=== PATIENT | male | born 1990 | race Caucasian/White ===

== ENCOUNTER 2016-05-03 17:30 | Emergency (ER) | payer OTHER ==
[2016-05-03 17:46] VITALS: BP 141/60; PULSE 87; RESP 18; TEMP 99.4
--- NOTE | 2016-05-03 18:20 | ED ---
General Adult HPI - General Chief complaint: ENT Stated complaint: RT EAR SWELLING Time Seen by Provider: 05/03/16 18:11 Source: patient, RN notes reviewed Mode of arrival: ambulatory Limitations: no limitations - History of Present Illness Initial comments: This is a 25-year-old male presents with an abscess to the right ear lobe. Patient states this has been present for about one month but has not been this large. Patient states this has happened to him once here for the last 3 years. Patient states he tried to drain it last night with a sewing needle. Patient denies any fever/chills or right inner ear pain. Patient states this has happened to him before. Patient denies trauma to the ear or recent piercings. Patient denies any recent shortness breath, chest pain, abdominal pain, nausea/ vomiting/diarrhea, back pain, numbness, tingling, hematuria, headache, or visual changes, or any other complaints. - Related Data Previous Rx's Medication Instructions Recorded Sulfamethox-Tmp 800-160Mg [Bactrim 1 tab PO Q12HR #28 tab 05/03/16 DS 800-160 mg] traMADol HCL [Ultram] 50 mg PO Q6HR #12 tab 05/03/16 Allergies Allergy/AdvReac Type Severity Reaction Status Date / Time No Known Allergies Allergy Verified 10/30/15 20:00 Review of Systems ROS Statement: Those systems with pertinent positive or pertinent negative responses have been documented in the HPI. ROS Other: All systems not noted in ROS Statement are negative. Past Medical History Past Medical History: No Reported History History of Any Multi-Drug Resistant Organisms: None Reported Past Surgical History: Ear Surgery, Tonsillectomy Past Psychological History: Bipolar Smoking Status: Current every day smoker Past Alcohol Use History: Occasional Past Drug Use History: Marijuana General Exam - General Exam Comments Initial Comments: General: The patient is awake and alert, in no distress, and does not appear acutely ill. Eye: Pupils are equal, round and reactive to light, extra-ocular movements are intact. No nystagmus. There is normal conjunctiva bilaterally. No signs of icterus. Ears: Right ear lobe is erythematous, swollen, tender to palpation. TMs pink and pearly with intact cone of light bilaterally. Normal external ear canals Nose: Nasal turbinates pink and moist Mouth and throat: There are moist mucous membranes and no oral lesions. Neck: The neck is supple, there is no tenderness or JVD. Cardiovascular: There is a regular rate and rhythm. No murmur, rub or gallop is appreciated. Respiratory: Lungs are clear to auscultation, respirations are non-labored, breath sounds are equal. No wheezes, stridor, rales, or rhonchi. Musculoskeletal: Normal ROM, no tenderness. Strength 5/5. Sensation intact. Radial pulses equal bilaterally 2+. Neurological: A&O x 3. CN II-XII intact, There are no obvious motor or sensory deficits. Coordination appears grossly intact. Speech is normal. Skin: Skin is warm and dry and no rashes or lesions are noted. Psychiatric: Cooperative, appropriate mood & affect, normal judgment. Limitations: no limitations Course Vital Signs 05/03/16 17:42 Temperature 99.4 F Pulse Rate 87 Respiratory 18 Rate Blood Pressure 141/60 O2 Sat by Pulse 96 Oximetry Procedures - Procedures Initial comment: The skin overlying the abscess was prepped with Betadine, and anesthetized with 1% lidocaine without epinephrine. A #11 scalpel was then used to incise the abscess. Some purulent material was then extracted from the lesion. Wound culture obtained. Gauze dressing placed on top, The patient tolerated the procedure well. Medical Decision Making - Medical Decision Making Physician referral male presents with an abscess to the right earlobe. Patient states this has happened to him before. Patient denies trauma to the ear or recent piercings. On physical exam Right ear lobe is erythematous, swollen, tender to palpation. TMs pink and pearly with intact cone of light bilaterally. Normal external ear canals. Patient is afebrile in the EC. The skin overlying the abscess was prepped with Betadine, and anesthetized with 1% lidocaine without epinephrine. A #11 scalpel was then used to incise the abscess. Some purulent material was then extracted from the lesion. Wound culture obtained. Gauze dressing placed on top, The patient tolerated the procedure well. I discussed with the patient was put on a course of Bactrim. I discussed warm compresses. Discussed Tylenol and Motrin as needed for any pain. Patient will be given a prescription for tramadol for breakthrough pain. I discussed return parameters.Discussed that patient should follow up with PCP in one to 2 days or return to the EC for any worsening symptoms or for any further concerns. Patient was receptive to this plan and patient will be discharged home. Disposition Clinical Impression: Abscess of right earlobe Disposition: HOME SELF-CARE Condition: Good Instructions: Abscess (ED) Additional Instructions: Please finish the entire course of antibiotics. Please use Tylenol and/or Motrin as needed for any pain. Please use tramadol for breakthrough pain. Please use warm compresses to the area to allow for drainage. Please follow-up with her primary care physician in one to 2 days or return to the EC for any worsening symptoms or for any further concerns. Prescriptions: Sulfamethox-Tmp 800-160Mg [Bactrim DS 800-160 mg] 1 tab PO Q12HR #28 tab traMADol HCL [Ultram] 50 mg PO Q6HR #12 tab Referrals: None,Stated [Primary Care Provider] - 1-2 days Robert Mueller MD [REFERRING] - 1-2 days Ann-Marie Ramirez MD [STAFF PHYSICIAN] - 1-2 days Time of Disposition: 18:42
== END 2016-05-03 18:58 | disposition home or self-care (01) ==
LOC: EC 17:30
DX: H60.01 Abscess of right external ear (principal); F17.200 Nicotine dependence, unspecified, uncomplicated
CPT/HCPCS: 69000; 87070; 87077; 87186; 87205; 99283

== ENCOUNTER 2016-05-15 13:54 | Emergency (ER) | payer OTHER ==
[2016-05-15 14:09] VITALS: BP 158/78; PULSE 83; RESP 18; TEMP 97.9
--- NOTE | 2016-05-15 14:16 | ED ---
General Adult HPI - General Chief complaint: Extremity Injury, Upper Stated complaint: pinched nerve Time Seen by Provider: 05/15/16 14:10 Source: patient, RN notes reviewed Mode of arrival: ambulatory Limitations: no limitations - History of Present Illness Initial comments: this is a 25-year-old male presents with left shoulder pain that started this morning at work. 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 Patient states he noticed the pain about 45 minutes after lifting at work this morning. Patient states this happened to him a year ago. Patient took Tylenol and Motrin [id number] for this pain and his symptoms have improved. Patient denies any pain while at rest but states when he lifts the left upper extremity there is pain to the posterior shoulder. Patient did not fall and denies any trauma to the area. Patient denies any numbness/weakness/tingling or radicular pain. Patient denies any neck pain. Patient denies any recent fever, chills, shortness breath, chest pain, abdominal pain, nausea/vomiting/ diarrhea, back pain, hematuria, headache, or visual changes, or any other complaints. - Related Data Home Medications Medication Instructions Recorded Confirmed No Known Home Medications [No 05/15/16 05/15/16 Known Home Medications] Allergies Allergy/AdvReac Type Severity Reaction Status Date / Time No Known Allergies Allergy Verified 05/15/16 14:05 Review of Systems ROS Statement: Those systems with pertinent positive or pertinent negative responses have been documented in the HPI. ROS Other: All systems not noted in ROS Statement are negative. Past Medical History Past Medical History: No Reported History History of Any Multi-Drug Resistant Organisms: None Reported Past Surgical History: Ear Surgery, Tonsillectomy Past Psychological History: Bipolar Smoking Status: Current every day smoker Past Alcohol Use History: Occasional Past Drug Use History: Marijuana General Exam - General Exam Comments Initial Comments: General: The patient is awake and alert, in no distress, and does not appear acutely ill. Neck: The neck is supple, there is no tenderness or JVD. No cervical midline tenderness. Cardiovascular: There is a regular rate and rhythm. No murmur, rub or gallop is appreciated. Respiratory: Lungs are clear to auscultation, respirations are non-labored, breath sounds are equal. No wheezes, stridor, rales, or rhonchi. Musculoskeletal: There is mild tenderness to palpation to the posterior left shoulder. Negative empty can test. Pain is exacerbated with forced external rotation of the left forearm. Patient has no pain to the right shoulder. Full range of motion, strength 5/5 and Sensation intact. Radial pulses 2+ bilaterally. Neurological: A&O x 3. CN II-XII intact, There are no obvious motor or sensory deficits. Coordination appears grossly intact. Speech is normal. Skin: Skin is warm and dry and no rashes or lesions are noted. Psychiatric: Normal mood and affect. Limitations: no limitations Course Vital Signs 05/15/16 14:05 Temperature 97.9 F Pulse Rate 83 Respiratory 18 Rate Blood Pressure 158/78 O2 Sat by Pulse 99 Oximetry Medical Decision Making - Medical Decision Making This is a 25-year-old male presents with muscle pain to the left posterior shoulder. On physical exam There is mild tenderness to palpation to the posterior left shoulder. Negative empty can test. Pain is exacerbated with forced external rotation of the left forearm. Full range of motion, strength 5/ 5 and Sensation intact. Radial pulses 2+ bilaterally. I discussed that the pain the patient is experiencing is most likely caused from repetitive lifting at work. I discussed rest, ice/heat, Tylenol and/or Motrin [id number] for pain. I discussed that patient needs take a break from activities that cause increased pain. Discussed return parameters.Discussed that patient should follow up with PCP in one to 2 days or return to the EC for any worsening symptoms or for any further concerns. Patient was receptive to this plan and patient will be discharged home. Disposition Clinical Impression: Muscle strain, shoulder region Disposition: HOME SELF-CARE Condition: Good Instructions: Shoulder Pain (ED) Additional Instructions: Please rest, ice/heat and use [id number] Tylenol and/or Motrin for pain. Please refrain from activities that cause increased shoulder pain. Please follow-up with your primary care provider in one to 2 days or return to the EC for any worsening symptoms or for any further concerns. Referrals: None,Stated [Primary Care Provider] - 1-2 days Ann-Marie Ramirez MD [STAFF PHYSICIAN] - 1-2 days Time of Disposition: 14:22
== END 2016-05-15 14:28 | disposition home or self-care (01) ==
LOC: EC 13:54
DX: S46.912A Strain of unspecified muscle, fascia and tendon at shoulder and upper arm level, left arm, initial encounter (principal); X50.0XXA Overexertion from strenuous movement or load, initial encounter; Y99.0 Civilian activity done for income or pay; F17.200 Nicotine dependence, unspecified, uncomplicated
CPT/HCPCS: 99283

== ENCOUNTER 2016-05-31 13:02 | Emergency (ER) | payer OTHER ==
[2016-05-31 13:08] VITALS: BP 148/67; PULSE 101; RESP 18; TEMP 98.6
--- NOTE | 2016-05-31 13:55 | ED ---
URI HPI - General Chief Complaint: Upper Respiratory Infection Stated Complaint: ENT Time Seen by Provider: 05/31/16 13:28 Source: patient, RN notes reviewed, old records reviewed Mode of arrival: ambulatory Limitations: no limitations - History of Present Illness Initial Comments: Patient is a 25-year-old male with chief complaint of upper respiratory congestion for approximately 3 days. Patient reports that he has a sore throat and mild cough. He denies any productive sputum. He denies any fever or chills. He reports isn't taking ALLERGY medication for relief. He denies any significant past medical history. He did not receive a flu vaccination. - Related Data Previous Rx's Medication Instructions Recorded Azithromycin [Zithromax Z-pack] 250 mg PO DIRECTED #6 tab 05/31/16 Allergies Allergy/AdvReac Type Severity Reaction Status Date / Time No Known Allergies Allergy Verified 05/31/16 13:08 Review of Systems ROS Statement: Those systems with pertinent positive or pertinent negative responses have been documented in the HPI. ROS Other: All systems not noted in ROS Statement are negative. Past Medical History Past Medical History: No Reported History History of Any Multi-Drug Resistant Organisms: None Reported Past Surgical History: Ear Surgery, Tonsillectomy Past Psychological History: Bipolar Smoking Status: Current every day smoker Past Alcohol Use History: Occasional Past Drug Use History: Marijuana General Exam - General Exam Comments Initial Comments: Well-appearing 25-year-old male. General: Well appearing, well nourished, in no distress. Oriented x 3, normal mood and affect . Ambulating without difficulty. Skin: Good turgor, no rash, unusual bruising or prominent lesions Hair: Normal texture and distribution. HEENT: Head: Normocephalic, atraumatic, no visible or palpable masses, depressions, or scaring. Eyes: Visual acuity intact, conjunctiva clear, sclera non-icteric, EOM intact, PERRL. Ears: EACs clear, TMs translucent & cone of light visualized. hearing intact. Nose: No external lesions, mucosa non-inflamed, septum and turbinates normal Mouth: Mucous membranes moist, no mucosal lesions. Teeth/Gums: No obvious caries or periodontal disease. No gingival inflammation or significant resorption. Pharynx: Mucosa non-inflamed, no tonsillar hypertrophy or exudate Neck: Supple, without lesions, bruits, or adenopathy, thyroid non-enlarged and non-tender Heart: No cardiomegaly or thrills; regular rate and rhythm, no murmur or gallop Lungs: Clear to auscultation and percussion Abdomen: Bowel sounds normal, no tenderness, organomegaly, masses, or hernia Back: Spine normal without deformity or tenderness, no CVA tenderness Rectal: Normal sphincter tone, no hemorrhoids or masses palpable Extremities: No amputations or deformities, cyanosis, edema or varicosities, peripheral pulses intact Musculoskeletal: Normal gait and station. No misalignment, asymmetry, crepitation, defects, tenderness, masses, effusions, decreased range of motion, instability, atrophy or abnormal strength or tone in the head, neck, spine, ribs , pelvis or extremities. Neurologic: CN 2-12 normal. Sensation to pain, touch, and proprioception normal. DTRs normal in upper and lower extremities. No pathologic reflexes. Psychiatric: Oriented X3, intact recent and remote memory, judgment and insight , normal mood and affect. Limitations: no limitations Course Vital Signs 05/31/16 13:06 Temperature 98.6 F Pulse Rate 101 H Respiratory 18 Rate Blood Pressure 148/67 O2 Sat by Pulse 97 Oximetry Medical Decision Making - Medical Decision Making Patient is a well-appearing 25-year-old male chief complaint of upper respiratory congestion progressively 3 days. Rapid strep was obtained. He has a negative result this time. I discussed the patient needs to continue to use ALLERGY medication and other decongestants [id number]. Patient requests a work note. I also discussed that I will write the patient for azithromycin and he should take antibiotic if he has symptoms after 3 more days of over-the- counter treatments. Patient seems treatment plan will comply. Return parameters were discussed. - Lab Data Lab Results 05/31/16 Range/Units 13:33 Group A Strep Rapid Negative (Negative) Disposition Clinical Impression: Upper respiratory infection Disposition: HOME SELF-CARE Condition: Good Instructions: Upper Respiratory Infection (ED) Additional Instructions: Patient advised to continue to use decongestants and ALLERGY medication. Motrin Tylenol for fever or pain. Follow-up with a primary care provider if symptoms continue to persist after 2 or 3 more days. Patient can start azithromycin if symptoms continue to persist after 3 or 4 days. Prescriptions: Azithromycin [Zithromax Z-pack] 250 mg PO DIRECTED #6 tab Referrals: Ann-Marie Ramirez MD [STAFF PHYSICIAN] - 1-2 days Time of Disposition: 13:53
== END 2016-05-31 14:06 | disposition home or self-care (01) ==
LOC: EC 13:02
DX: J06.9 Acute upper respiratory infection, unspecified (principal); F17.200 Nicotine dependence, unspecified, uncomplicated; Z90.89 Acquired absence of other organs
CPT/HCPCS: 87081; 87430; 99284

== ENCOUNTER 2016-06-11 01:34 | Emergency (ER) | payer OTHER ==
[2016-06-11 01:43] VITALS: BP 132/63; PULSE 98; RESP 18; TEMP 98.1
--- NOTE | 2016-06-11 01:59 | ED ---
ENT HPI - General Chief complaint: ENT Stated complaint: ENT Time Seen by Provider: 06/11/16 01:52 Source: patient, RN notes reviewed Mode of arrival: ambulatory Limitations: no limitations - History of Present Illness Initial comments: 25-year-old male present emergency breath sinus congestion, right ear pain, sore throat. Patient states started 2 weeks ago. Patient states his cough is productive when he wakes up in the morning. Denies any chest pain or shortness breath. Denies fever or chills. Patient states she is not taking any over-the- counter cough and cold medications. No ALLERGIES. - Related Data Previous Rx's Medication Instructions Recorded Amoxicillin/Potassium Clav 1 tab PO Q12HR #20 tab 06/11/16 [Augmentin 875-125 Tablet] Allergies Allergy/AdvReac Type Severity Reaction Status Date / Time No Known Allergies Allergy Verified 06/11/16 01:43 Review of Systems ROS Statement: Those systems with pertinent positive or pertinent negative responses have been documented in the HPI. ROS Other: All systems not noted in ROS Statement are negative. Past Medical History Past Medical History: No Reported History History of Any Multi-Drug Resistant Organisms: None Reported Past Surgical History: Ear Surgery, Tonsillectomy Past Psychological History: Bipolar Smoking Status: Current every day smoker Past Alcohol Use History: Occasional Past Drug Use History: Marijuana General Exam Limitations: no limitations General appearance: alert, in no apparent distress Head exam: Present: atraumatic, normocephalic, normal inspection Eye exam: Present: normal appearance, PERRL, EOMI. Absent: scleral icterus, conjunctival injection, periorbital swelling ENT exam: Present: mucous membranes moist, normal external ear exam, other ( Mild maxillary sinus tenderness). Absent: normal oropharynx (Postnasal drainage mild erythema), TM's normal bilaterally (Fluid noted of the right TM) Neck exam: Present: normal inspection, full ROM. Absent: tenderness, meningismus, lymphadenopathy Respiratory exam: Present: normal lung sounds bilaterally. Absent: respiratory distress, wheezes, rales, rhonchi, stridor Cardiovascular Exam: Present: regular rate, normal rhythm, normal heart sounds. Absent: systolic murmur, diastolic murmur, rubs, gallop, clicks Course Vital Signs 06/11/16 01:39 Temperature 98.1 F Pulse Rate 98 Respiratory 18 Rate Blood Pressure 132/63 O2 Sat by Pulse 96 Oximetry Medical Decision Making - Medical Decision Making 25-year-old male present emergency Department for congestion over the last 2 weeks. Patient was treated for acute sinusitis at this time. Disposition Clinical Impression: Acute sinusitis Disposition: HOME SELF-CARE Condition: Stable Instructions: Sinusitis (ED) Additional Instructions: Please return to the Emergency Department if symptoms worsen or any other concerns. Prescriptions: Amoxicillin/Potassium Clav [Augmentin 875-125 Tablet] 1 tab PO Q12HR #20 tab Time of Disposition: 01:58
== END 2016-06-11 02:14 | disposition home or self-care (01) ==
LOC: EC 01:34
DX: J01.00 Acute maxillary sinusitis, unspecified (principal); F17.200 Nicotine dependence, unspecified, uncomplicated
CPT/HCPCS: 99283

== ENCOUNTER 2016-08-09 00:43 | Emergency (ER) | payer OTHER ==
[2016-08-09 00:48] VITALS: RESP 18; TEMP 98
[2016-08-09] MEDS ORDERED: ALBUTEROL NEBULIZED 2.5 MG/3 ML INHALATION STA (01:14)
--- NOTE | 2016-08-09 01:36 | XR ---
INDICATION: Dyspnea COMPARISON: None. FINDINGS: PA and lateral views of the chest are obtained. The cardiomediastinal silhouette is within normal limits. Lungs are clear. No pleural effusions. Bony elements are within normal limits. IMPRESSION: No acute cardiopulmonary disease.
--- NOTE | 2016-08-09 02:45 | ED ---
SOB HPI - General Chief Complaint: Shortness of Breath Stated Complaint: Difficulty Breathing/weakness Time Seen by Provider: 08/09/16 00:59 Source: patient Mode of arrival: ambulatory Limitations: no limitations - History of Present Illness Initial Comments: This patient is 25-year-old man who presents with some shortness of breath is been going on for 2-3 days now. Patient states he has had occasional nonproductive cough but not very frequently. He is denying chest pain, fevers or chills, leg pain or swelling, change in urination or bowel movements. MD Complaint: shortness of breath Onset/Timin -: days(s) Severity: mild Consistency: constant Improves With: nothing Worsens With: nothing Associated Symptoms: denies other symptoms - Related Data Previous Rx's Medication Instructions Recorded Albuterol Inhaler [Ventolin Hfa 1 - 2 puff INHALATION Q6HR PRN #1 08/09/16 Inhaler] inhaler Allergies Allergy/AdvReac Type Severity Reaction Status Date / Time No Known Allergies Allergy Verified 08/09/16 00:48 Review of Systems ROS Statement: Those systems with pertinent positive or pertinent negative responses have been documented in the HPI. ROS Other: All systems not noted in ROS Statement are negative. Constitutional: Denies: fever, chills, weakness Respiratory: Reports: as per HPI, cough, dyspnea. Denies: wheezes, hemoptysis Gastrointestinal: Denies: abdominal pain, nausea, vomiting Genitourinary: Denies: dysuria, hematuria Musculoskeletal: Denies: back pain Skin: Denies: rash Neurological: Denies: headache, weakness, numbness Past Medical History Past Medical History: No Reported History History of Any Multi-Drug Resistant Organisms: None Reported Past Surgical History: Ear Surgery, Tonsillectomy Past Psychological History: Bipolar Smoking Status: Current every day smoker Past Alcohol Use History: Occasional Past Drug Use History: Marijuana General Exam Limitations: no limitations General appearance: alert, in no apparent distress Head exam: Present: atraumatic, normocephalic Eye exam: Present: normal appearance. Absent: scleral icterus, conjunctival injection Respiratory exam: Present: wheezes. Absent: respiratory distress, rales, rhonchi, stridor, accessory muscle use, decreased breath sounds, prolonged expiratory Cardiovascular Exam: Present: regular rate, normal rhythm, normal heart sounds. Absent: systolic murmur, diastolic murmur, rubs, gallop GI/Abdominal exam: Present: soft. Absent: tenderness, guarding, rebound Extremities exam: Present: normal inspection, normal capillary refill. Absent: pedal edema, calf tenderness Neurological exam: Present: alert Skin exam: Present: warm, dry, intact, normal color. Absent: rash Course Vital Signs 08/09/16 08/09/16 08/09/16 00:46 01:39 01:49 Temperature 98.0 F Pulse Rate 99 96 100 Respiratory 18 Rate Blood Pressure 141/71 O2 Sat by Pulse 98 Oximetry 08/09/16 02:56 Temperature Pulse Rate 98 Respiratory 18 Rate Blood Pressure 129/61 O2 Sat by Pulse 100 Oximetry Medical Decision Making - Medical Decision Making Patient did have trace expiratory wheeze that resolved after albuterol treatment. Appears to be having episode of reactive airway disease and will treat with albuterol inhaler and appropriate follow-up. Discussed return parameters. Disposition Clinical Impression: Reactive airway disease Disposition: HOME SELF-CARE Condition: Good Instructions: Acute Bronchitis (ED) Prescriptions: Albuterol Inhaler [Ventolin Hfa Inhaler] 1 - 2 puff INHALATION Q6HR PRN #1 inhaler PRN Reason: Wheezing Referrals: None,Stated [Primary Care Provider] - 1-2 days
[2016-08-09 02:57] VITALS: BP 129/61; PULSE 98
== END 2016-08-09 02:56 | disposition home or self-care (01) ==
LOC: EC 00:43
DX: J45.909 Unspecified asthma, uncomplicated (principal); F17.200 Nicotine dependence, unspecified, uncomplicated
CPT/HCPCS: 71020; 94640; 99285

== ENCOUNTER 2016-08-21 19:34 | Emergency (ER) | payer OTHER ==
[2016-08-21] MEDS ORDERED: SODIUM CHLORIDE 0.9% 500 ML IV STA (21:28)
[2016-08-21] MEDS ORDERED: SODIUM CHLORIDE 0.9% 1,000 ML IV STA (21:28)
[2016-08-21] MEDS ORDERED: ONDANSETRON 4 MG/2 ML VIAL IVP STA (21:28)
[2016-08-21 22:02] LABS: Basophils # (A) 0.1 k/uL (0-0.2); Basophils % (A) 1 %; CH 29.9; CHCM 34.5; Eosinophils # (A) 0.1 k/uL (0-0.7); Eosinophils % (A) 1 %; HCT 44.3 % (39.0-53.0); HDW 2.37; HGB 14.9 gm/dL (13.0-17.5); Luc # (Auto) 0.35; Luc % (Auto) 3; Lymphocytes # (A) 3.2 k/uL (1.0-4.8); Lymphocytes % (A) 23 %; MCH 29.2 pg (25.0-35.0); MCHC 33.6 g/dL (31.0-37.0); MCV 86.9 fL (80.0-100.0); Mean Platelet Volume 7.6; Monocytes # (A) 0.7 k/uL (0-1.0); Monocytes % (A) 5 %; Neutrophils # (A) 9.3 k/uL (1.3-7.7); Neutrophils % (A) 67 %; RDW 13.2 % (11.5-15.5); WBC 13.7 k/uL (3.8-10.6); WBC (Perox) 13.34
[2016-08-21 22:05] LABS: Appearance,Urine Cloudy (Clear); Bilirubin,Urine Negative (Negative); Glucose,Urine (UA) Negative (Negative); Ketones,Urine Negative (Negative); Leukocyte Esterase,Urine Negative (Negative); Mucus,Urine Rare /hpf; Nitrite,Urine Negative (Negative); Particle Count 10985; Protein,Urine Negative (Negative); RBC,Urine 2 /hpf (0-5); Specific Gravity,Urine 1.018 (1.001-1.035); UA Billing (MACRO vs. MICRO) MICRO; Urobilinogen,Urine <2.0 mg/dL (<2.0); WBC,Urine 1 /hpf (0-5)
[2016-08-21 22:11] LABS: ALT 44 U/L (21-72); AST 25 U/L (17-59); Alkaline Phosphatase 52 U/L (38-126); Amylase 80 U/L (30-110); Anion Gap 9 mmol/L; Blood Urea Nitrogen 14 mg/dL (9-20); Carbon Dioxide 26 mmol/L (22-30); Chloride 104 mmol/L (98-107); Glucose 89 mg/dL (74-99); Non-African American GFR(MDRD) >60 (>60 ml/min/1.73 sqM); Potassium 4.2 mmol/L (3.5-5.1); Sodium 139 mmol/L (137-145); Total Bilirubin 0.5 mg/dL (0.2-1.3); Total Protein 7.4 g/dL (6.3-8.2)
--- NOTE | 2016-08-21 22:31 | XR ---
EXAM: XR Chest, 2 Views CLINICAL HISTORY: Reason: pain TECHNIQUE: Frontal and lateral views of the chest. COMPARISON: Chest radiographs 08/09/2016 FINDINGS: Lungs: Lungs are clear. Pleural space: No evidence of pleural effusion or pneumothorax. Heart: Heart size is within normal limits. Mediastinum: Mediastinal structures are within normal limits. Bones/joints: Imaged bony thorax is unremarkable. IMPRESSION: No evidence of active chest disease. No significant change since 08/09/2016
--- NOTE | 2016-08-21 22:35 | XR ---
EXAM: XR Abdomen Complete, 2 or More Views-supine and erect CLINICAL HISTORY: Reason: pain TECHNIQUE: Frontal view of the abdomen/pelvis with upright view of the abdomen. COMPARISON: Chest radiographs 08/21/2016 FINDINGS: Intraperitoneal space: Bowel gas pattern is unremarkable. No evidence of bowel obstruction or pneumoperitoneum. No abnormal hesitations in the abdomen or pelvis. Gastrointestinal tract: Unremarkable. No dilation. Organs: No radiopaque renal calculi. Bones/joints: Bony structures are unremarkable. Rounded density projecting just superior to the right femoral neck is of uncertain etiology and could be related to overlying artifact. IMPRESSION: No radiographic evidence of acute abdominal disease or bowel obstruction.
--- NOTE | 2016-08-21 23:05 | ED ---
Nausea/Vomiting/Diarrhea HPI - General Chief complaint: Nausea/Vomiting/Diarrhea Stated complaint: Vomiting Time Seen by Provider: 08/21/16 21:05 Source: patient Mode of arrival: ambulatory Limitations: no limitations - History of Present Illness Initial comments: Complaining about Nausea and Vomiting, He Vomited More Than 5 Times in Last 24 Hours Draining about 2 Mild Discomfort in the Epigastric Area He Denies Any Sick Contacts at Home or at Work He Does Smoke [place] Regularly. He Denies Any History of Peptic Ulcer Disease. He Denies Any Abdominal Surgeries for Appendix or Gallbladder. His Complaining about Her Ear Pains Left Worse Than the Right. No Fever No Chills No Neck Stiffness No Chest Pain Very Mild Discomfort in the Abdomen - Related Data Previous Rx's Medication Instructions Recorded Albuterol Inhaler [Ventolin Hfa 1 - 2 puff INHALATION Q6HR PRN #1 08/09/16 Inhaler] inhaler Amoxicillin 500 mg PO Q8HR #30 capsule 08/21/16 Metoclopramide [Reglan] 10 mg PO TID #15 tab 08/21/16 Allergies Allergy/AdvReac Type Severity Reaction Status Date / Time No Known Allergies Allergy Verified 08/09/16 00:48 Review of Systems ROS Statement: Those systems with pertinent positive or pertinent negative responses have been documented in the HPI. ROS Other: All systems not noted in ROS Statement are negative. Past Medical History Past Medical History: No Reported History History of Any Multi-Drug Resistant Organisms: None Reported Past Surgical History: Ear Surgery, Tonsillectomy Past Psychological History: Bipolar Smoking Status: Current every day smoker Past Alcohol Use History: Occasional Past Drug Use History: Marijuana General Exam - General Exam Comments Initial Comments: General: The patient is awake and alert, in no distress, and does not appear acutely ill. Skin: Skin is warm and dry and no rashes or lesions are noted. Eye: Pupils are equal, round and reactive to light, extra-ocular movements are intact; there is normal conjunctiva bilaterally. Ears, nose, mouth and throat: Noticed otitis media in both ears left worse than the right Neck: The neck is supple, there is no tenderness or JVD. Cardiovascular: There is a regular rate and rhythm. No murmur, rub or gallop is appreciated. Respiratory: To auscultation bilateral, no wheezing no rhonchi no distress respiratory sheppard noticed Gastrointestinal, abdomen is soft nontender positive bowel sounds no guarding no rebounds no signs of peritonitis no tenderness over the gallbladder area or appendix Back: There is no tenderness to palpation in the midline. There is no obvious deformity. Musculoskeletal: Normal ROM, no tenderness, There is no pedal edema. There is no calf tenderness or swelling. No cords were appreciated. Neurological: CN II-XII intact, Cranial nerves III through XII are intact. There are no obvious motor or sensory deficits. Coordination appears grossly intact. Speech is normal. Psychiatric: Cooperative, appropriate mood & affect, normal judgment. Limitations: no limitations Course Vital Signs 08/21/16 19:47 Temperature 98.8 F Pulse Rate 88 Respiratory 16 Rate Blood Pressure 122/60 O2 Sat by Pulse 97 Oximetry Noticed white count is slightly elevated, I think is secondary to emesis there are no focal tenderness and I felt that doing a CAT scan will be unnecessary at this point I advised patient to come back to ER if abdominal pain, worse along with a fever chills he agreed. And he agreed to hold off the CT of abdomen at this point Medical Decision Making - Lab Data Result diagrams: 08/21/16 21:50 08/21/16 21:50 Lab Results 08/21/16 08/21/16 08/21/16 Range/Units 21:50 21:50 21:50 WBC 13.7 H (3.8-10.6) k/uL RBC 5.10 (4.30-5.90) m/uL Hgb 14.9 (13.0-17.5) gm/dL Hct 44.3 (39.0-53.0) % MCV 86.9 (80.0-100.0) fL MCH 29.2 (25.0-35.0) pg MCHC 33.6 (31.0-37.0) g/dL RDW 13.2 (11.5-15.5) % Plt Count 190 (150-450) k/uL Neutrophils % 67 % Lymphocytes % 23 % Monocytes % 5 % Eosinophils % 1 % Basophils % 1 % Neutrophils # 9.3 H (1.3-7.7) k/uL Lymphocytes # 3.2 (1.0-4.8) k/uL Monocytes # 0.7 (0-1.0) k/uL Eosinophils # 0.1 (0-0.7) k/uL Basophils # 0.1 (0-0.2) k/uL Sodium 139 (137-145) mmol/L Potassium 4.2 (3.5-5.1) mmol/L Chloride 104 (98-107) mmol/L Carbon Dioxide 26 (22-30) mmol/L Anion Gap 9 mmol/L BUN 14 (9-20) mg/dL Creatinine 0.67 (0.66-1.25) mg/dL Est GFR (MDRD) Af Amer >60 (>60 ml/min/1.73 sqM) Est GFR (MDRD) Non-Af >60 (>60 ml/min/1.73 sqM) Glucose 89 (74-99) mg/dL Calcium 10.0 (8.4-10.2) mg/dL Total Bilirubin 0.5 (0.2-1.3) mg/dL AST 25 (17-59) U/L ALT 44 (21-72) U/L Alkaline Phosphatase 52 (38-126) U/L Total Protein 7.4 (6.3-8.2) g/dL Albumin 4.6 (3.5-5.0) g/dL Amylase 80 (30-110) U/L Lipase 112 (23-300) U/L Urine Color Yellow Urine Appearance Cloudy (Clear) Urine pH 6.0 (5.0-8.0) Ur Specific [place] 1.018 (1.001-1.035) Urine Protein Negative (Negative) Urine Glucose (UA) Negative (Negative) Urine Ketones Negative (Negative) Urine Blood Negative (Negative) Urine Nitrite Negative (Negative) Urine Bilirubin Negative (Negative) Urine Urobilinogen <2.0 (<2.0) mg/dL Ur Leukocyte Esterase Negative (Negative) Urine RBC 2 (0-5) /hpf Urine WBC 1 (0-5) /hpf Urine Mucus Rare H (None) /hpf Urine Yeast (Budding) Occasional H (None) /hpf Disposition Clinical Impression: Nausea and vomiting, Otitis media Disposition: HOME SELF-CARE Instructions: Acute Nausea and Vomiting (ED) Additional Instructions: Is advised to come to the ER since he has no family doctor in case he develops fever chills or abdominal pain occurs along with the nausea and vomiting at that point he would need CT of the abdomen to rule out appendicitis him a he agreed Prescriptions: Amoxicillin 500 mg PO Q8HR #30 capsule Metoclopramide [Reglan] 10 mg PO TID #15 tab Referrals: None,Stated [Primary Care Provider] - 1-2 days
[2016-08-21 23:13] VITALS: BP 104/55; PULSE 74; RESP 18; TEMP 97.1
== END 2016-08-21 23:13 | disposition home or self-care (01) ==
LOC: EC 19:34
DX: H66.93 Otitis media, unspecified, bilateral (principal); R11.2 Nausea with vomiting, unspecified; F17.200 Nicotine dependence, unspecified, uncomplicated
CPT/HCPCS: 99284; 96374; 96361; 36415; 80053; 82150; 83690; 85025; 81001; 71020; 74000; J2405

== ENCOUNTER 2018-05-28 10:16 | Emergency (ER) | payer OTHER ==
[2018-05-28 10:33] VITALS: BP 120/85; PULSE 70; TEMP 98.3
--- NOTE | 2018-05-28 11:10 | ED ---
General Adult HPI - General Chief complaint: Upper Respiratory Infection Stated complaint: flu symptoms Time Seen by Provider: 05/28/18 10:36 Source: patient, family, RN notes reviewed Mode of arrival: ambulatory Limitations: no limitations - History of Present Illness Initial comments: 27-year-old male presents to the emergency department for chief complaint of fevers. Patient has not checked his fever but feels febrile with chills. Patient waning of body aches. Patient was a cough that is nonproductive. Patient also significant congestion and ear pain. Patient also complaining of a sore throat. Denies nausea or vomiting. No medical complications. Patient does admit to smoking. Patient has no other complaints at this time including shortness of breath, chest pain, abdominal pain, nausea or vomiting, headache, or visual changes. - Related Data Home Medications Medication Instructions Recorded Confirmed Dm/Acetaminophen/Doxylamine [Vicks 30 ml PO Q6H PRN 05/28/18 05/28/18 Nyquil Cold-Flu Liquid] Phenylephrine/Dm/Acetaminop/GG 30 ml PO Q6H PRN 05/28/18 05/28/18 [Vicks Dayquil Severe Cold-Flu] Previous Rx's Medication Instructions Recorded Albuterol Inhaler [Ventolin Hfa 1 - 2 puff INHALATION Q6HR PRN #1 05/28/18 Inhaler] inhaler predniSONE 50 mg PO DAILY #5 tablet 05/28/18 Allergies Allergy/AdvReac Type Severity Reaction Status Date / Time No Known Allergies Allergy Verified 05/28/18 10:56 Review of Systems ROS Statement: Those systems with pertinent positive or pertinent negative responses have been documented in the HPI. ROS Other: All systems not noted in ROS Statement are negative. Past Medical History Past Medical History: No Reported History History of Any Multi-Drug Resistant Organisms: None Reported Past Surgical History: Ear Surgery, Tonsillectomy Past Psychological History: Bipolar Smoking Status: Current every day smoker Past Alcohol Use History: Occasional Past Drug Use History: Marijuana General Exam Limitations: no limitations General appearance: alert, in no apparent distress Head exam: Present: atraumatic, normocephalic, normal inspection Eye exam: Present: normal appearance, PERRL, EOMI. Absent: scleral icterus, conjunctival injection, periorbital swelling ENT exam: Present: mucous membranes moist, TM's normal bilaterally, normal external ear exam. Absent: normal oropharynx (post nasal drip noted, erythematous, no tonsillar exudates bilat) Neck exam: Present: normal inspection, full ROM. Absent: tenderness, meningismus, lymphadenopathy Respiratory exam: Present: normal lung sounds bilaterally. Absent: respiratory distress, wheezes, rales, rhonchi, stridor Cardiovascular Exam: Present: regular rate, normal rhythm, normal heart sounds. Absent: systolic murmur, diastolic murmur, rubs, gallop, clicks Neurological exam: Present: alert, oriented X3, CN II-XII intact Psychiatric exam: Present: normal affect, normal mood Course Vital Signs 05/28/18 05/28/18 10:32 12:13 Temperature 98.3 F Pulse Rate 70 Respiratory 16 22 Rate Blood Pressure 120/85 O2 Sat by Pulse 98 Oximetry Medical Decision Making - Medical Decision Making 27-year-old male presents for cough, congestion. Patient also complaining of body aches. No medical complications. Vitals are within acceptable limits. Exam is unremarkable. Influenza and strep were negative. Chest x-ray shows peribronchial cuffing which can be seen with bursitis or asthma. Patient does not have a history of asthma. Patient will be treated with a steroid as well as given an inhaler. Discussed smoking cessation for greater than 3 minutes. Discussed returning here if he has any worsening symptoms. - Lab Data Lab Results 05/28/18 05/28/18 Range/Units 11:25 11:25 Influenza Type A RNA Not Detected (Not Detectd) Influenza Type B (PCR) Not Detected (Not Detectd) Group A Strep Rapid Negative (Negative) Disposition Clinical Impression: Bronchitis Disposition: HOME SELF-CARE Condition: Good Instructions (If sedation given, give patient instructions): Acute Bronchitis (ED) Additional Instructions: Please take prescriptions as directed. Please follow-up with primary care in 1- 2 days. Return here to the emergency department if you have any worsening symptoms. Prescriptions: predniSONE 50 mg PO DAILY #5 tablet Albuterol Inhaler [Ventolin Hfa Inhaler] 1 - 2 puff INHALATION Q6HR PRN #1 inhaler PRN Reason: Shortness Of Breath Is patient prescribed a controlled substance at d/c from ED?: No Referrals: Chapincito Castro MD [STAFF PHYSICIAN] - 1-2 days Time of Disposition: 13:03
--- NOTE | 2018-05-28 11:59 | XR ---
EXAMINATION TYPE: XR chest 2V DATE OF EXAM: 05/28/2018 COMPARISON: 08/21/2016 HISTORY: 27-year-old male with pain TECHNIQUE: PA and lateral views FINDINGS: Heart normal size. Aorta and pulmonary vasculature within normal limits. Central peribronchial cuffin g is present. No consolidation or pleural effusion. IMPRESSION: Peribronchial cuffing which can be seen with bronchitis or asthma. No focal infiltrate.
[2018-05-28 12:14] VITALS: RESP 22
== END 2018-05-28 13:36 | disposition home or self-care (01) ==
LOC: EC 10:16
DX: J40 Bronchitis, not specified as acute or chronic (principal); H92.09 Otalgia, unspecified ear; F17.200 Nicotine dependence, unspecified, uncomplicated; Z98.890 Other specified postprocedural states; Z90.89 Acquired absence of other organs
CPT/HCPCS: 71046; 87081; 87430; 87502; 99283; 99406

== ENCOUNTER 2019-01-01 14:04 | Emergency (ER) | payer OTHER ==
[2019-01-01 14:10] VITALS: BP 110/64; PULSE 97; RESP 18; TEMP 97.1
[2019-01-01] MEDS ORDERED: DIPH,PERTUS(ACELL)TETVAC-LF 0.5 ML VIAL IM ONE (14:13)
[2019-01-01] MEDS ORDERED: LIDOCAINE 1% INJ 10MG/ML (20 ML MDV) SQ ONE (14:16)
--- NOTE | 2019-01-01 14:16 | ED ---
General Adult HPI - General Chief complaint: Wound/Laceration Stated complaint: left hand lac Time Seen by Provider: 01/01/19 14:09 Source: patient Mode of arrival: ambulatory Limitations: no limitations - History of Present Illness Initial comments: Patient is a 28-year-old male presenting to emergency Department with a laceration to his left hand. Patient reports she was using a chop saw at work when he lacerated the posterior aspect of the third 3-5th digit. Patient reports for range of motion and the fingers. Patient is not on blood thinners. Patient is unaware of his last tetanus status. Patient denies any numbness or tingling. Patient reports the pain as a 5 on throbbing. Patient denies taking medication to alleviate the symptoms. - Related Data Home Medications Medication Instructions Recorded Confirmed Dm/Acetaminophen/Doxylamine [Vicks 30 ml PO Q6H PRN 05/28/18 05/28/18 Nyquil Cold-Flu Liquid] Phenylephrine/Dm/Acetaminop/GG 30 ml PO Q6H PRN 05/28/18 05/28/18 [Vicks Dayquil Severe Cold-Flu] Previous Rx's Medication Instructions Recorded Albuterol Inhaler [Ventolin Hfa 1 - 2 puff INHALATION Q6HR PRN #1 05/28/18 Inhaler] inhaler predniSONE 50 mg PO DAILY #5 tablet 05/28/18 Allergies Allergy/AdvReac Type Severity Reaction Status Date / Time No Known Allergies Allergy Verified 01/01/19 14:06 Review of Systems ROS Statement: Those systems with pertinent positive or pertinent negative responses have been documented in the HPI. ROS Other: All systems not noted in ROS Statement are negative. Past Medical History Past Medical History: No Reported History History of Any Multi-Drug Resistant Organisms: None Reported Past Surgical History: Ear Surgery, Tonsillectomy Past Psychological History: No Psychological Hx Reported Smoking Status: Current every day smoker Past Alcohol Use History: None Reported, Occasional Past Drug Use History: Marijuana General Exam - General Exam Comments Initial Comments: General: Well-developed well-nourished distress HEENT: Normocephalic/atraumatic, PERLL, pharynx erythema, swallowing well, EAC no erythema, no exudates, TM clear, no cervical lymph nodes Neck: Supple, nontender, trachea midline Chest/Lungs: Normal respirations, no signs of respiratory distress clear to auscultation bilaterally no wheezes, rales, rhonchi Cardiac: Regular rate and rhythm, normal S1-S2, no murmurs rubs or gallops Abdomen/GI: Soft nontender, bowel sounds equal or quadrant x4, no guarding, no rebound no CVA tenderness Musculoskeletal: Laceration measuring approximately 1 cm on the posterior aspect of the third and fourth and fifth digit, full range of motion, no active bleeding, no swelling, normal capillary refill, +2 ulnar and radial pulses in t he hand. Skin: Warmth, no rashes or lesions, no cyanosis or diaphoresis Neurologic: AAO x 3, CN 2-12 intact, Psychiatric: Mood and affect normal, judgment normal Limitations: no limitations Course Vital Signs 01/01/19 14:06 Temperature 97.1 F L Pulse Rate 97 Respiratory 18 Rate Blood Pressure 110/64 O2 Sat by Pulse 98 Oximetry Procedures - Laceration Laceration #1 Consent Obtained: verbal consent Indication: laceration Site: other (Finger) Size (cm): 1 Description: irregular Depth: simple, single layer Sedation/Analgesia: none Anesthetic Used: lidocaine 1% Anesthesia Technique: local infiltration Amount (mls): 5 Pre-repair: irrigated extensively Type of Sutures: nylon Size of Sutures: 4-0 Number of Sutures: 4 Technique: simple, interrupted Patient Tolerated Procedure: well, no complications Laceration #2 Consent Obtained: verbal consent Indication: laceration Site: other (4th digit) Size (cm): 1 (0.5) Description: irregular Depth: simple, single layer Sedation/Analgesia: none Anesthetic Used: lidocaine 1% Anesthesia Technique: local infiltration Amount (mls): 3 Pre-repair: irrigated extensively Type of Sutures: nylon Size of Sutures: 4-0 Number of Sutures: 1 Technique: simple, interrupted Patient Tolerated Procedure: well, no complications Medical Decision Making - Medical Decision Making Patient is a 28-year-old male presenting to emergency Department with a chief co mplaint of a laceration. Patient reports he was using a chop saw when he lacerated the left third and fourth and fifth digit. No active bleeding at this time. Pain was given Tylenol for pain. Laceration site was repaired with 3 sutures on the fifth digit and one suture on the fourth digit. Patient has full range of motion and no signs of tendon damage. Patient neurovascularly intact. Only fifth and fourth digit was sutured. Patient was given tetanus prophylaxis. Patient advised to return to emergency department for suture removal in 7-10 days. Patient vised to follow proper wound care instructions. Patient advised to return to emergency department sooner if symptoms worsen. Strict return parameters were thoroughly discussed with patient was understanding and agreeable. Case discussed physician. Disposition Clinical Impression: Laceration Disposition: HOME SELF-CARE Condition: Stable Instructions (If sedation given, give patient instructions): Care For Your Stitches (DC), Laceration (DC) Additional Instructions: Please return to the emergency department for suture removal in 7-10 days. Please follow proper wound care instructions. Alternate between Tylenol for pain control. Please return to emergency department sooner if symptoms worsen. Is patient prescribed a controlled substance at d/c from ED?: No Referrals: None,Stated [Primary Care Provider] - 1-2 days Time of Disposition: 14:52
[2019-01-01] MEDS ORDERED: ACETAMINOPHEN TAB 325 MG TAB PO STA (14:41)
== END 2019-01-01 15:14 | disposition home or self-care (01) ==
LOC: EC 14:04
DX: S61.213A Laceration without foreign body of left middle finger without damage to nail, initial encounter (principal); S61.215A Laceration without foreign body of left ring finger without damage to nail, initial encounter; S61.217A Laceration without foreign body of left little finger without damage to nail, initial encounter; F17.200 Nicotine dependence, unspecified, uncomplicated; Z23 Encounter for immunization; W31.2XXA Contact with powered woodworking and forming machines, initial encounter; Y93.89 Activity, other specified; Y92.69 Other specified industrial and construction area as the place of occurrence of the external cause
CPT/HCPCS: 90715; 99282; 12001; 90471; J2001

== ENCOUNTER 2020-07-02 10:43 | Emergency (ER) | payer OTHER ==
[2020-07-02 10:50] VITALS: BP 114/69; PULSE 88; RESP 18; TEMP 97.8
[2020-07-02] MEDS ORDERED: CYCLOBENZAPRINE 10MG STARTER 3 TAB BTL PO STA (11:09)
--- NOTE | 2020-07-02 11:11 | ED ---
Neck Injury/Pain HPI - General Chief Complaint: Neck Pain/Injury Stated Complaint: Neck pain Time Seen by Provider: 07/02/20 10:51 Mode of arrival: ambulatory Limitations: no limitations - History of Present Illness Initial Comments: 29-year-old male presenting to the emergency department today for chief complaint of right neck pain. pt states he woke up with right sided neck pain 2 day ago. states it hurt to turn, causes sharp posterior right sided pain. no arm weakness/pain or radiation. no falls/trauma. no fevers or headache, no anterior pain. no vision changes. patient appears well nontoxic and is holding his neck straight due to discomfort when turning. - Related Data Home Medications Medication Instructions Recorded Confirmed Dm/Acetaminophen/Doxylamine [Vicks 30 ml PO Q6H PRN 05/28/18 05/28/18 Nyquil Cold-Flu Liquid] Phenylephrine/Dm/Acetaminop/GG 30 ml PO Q6H PRN 05/28/18 05/28/18 [Vicks Dayquil Severe Cold-Flu] Previous Rx's Medication Instructions Recorded Albuterol Inhaler (Mhu) [Ventolin 1 - 2 puff INHALATION Q6HR PRN #1 05/28/18 Hfa Inhaler (Mhu)] inhaler predniSONE 50 mg PO DAILY #5 tablet 05/28/18 Cyclobenzaprine [Flexeril] 10 mg PO TID PRN 7 Days #21 tab 07/02/20 Allergies Allergy/AdvReac Type Severity Reaction Status Date / Time No Known Allergies Allergy Verified 07/02/20 10:47 Review of Systems ROS Statement: Those systems with pertinent positive or pertinent negative responses have been documented in the HPI. ROS Other: All systems not noted in ROS Statement are negative. Past Medical History Past Medical History: No Reported History History of Any Multi-Drug Resistant Organisms: None Reported Past Surgical History: Ear Surgery, Tonsillectomy Past Psychological History: No Psychological Hx Reported Smoking Status: Current every day smoker Past Alcohol Use History: Occasional Past Drug Use History: Marijuana General Exam - General Exam Comments Initial Comments: General: The patient is awake and alert, in no distress, and does not appear acutely ill. Eye: Pupils are equal, round and reactive to light, extra-ocular movements are intact. No nystagmus. There is normal conjunctiva bilaterally. No signs of icterus. Ears, nose, mouth and throat: There are moist mucous membranes and no oral lesions. Neck: The neck is supple, there is no tenderness or JVD anteriorly. there is paraspinal tenderness right sided, point localized increases with rotation. No midline pain. Musculoskeletal: Normal ROM, no tenderness. Strength 5/5 of the UE b/l. Sensation intact of the UE b/l. Radial and DP pulses equal bilaterally 2+. Neurological: A&O x 3. CN II-XII intact grossly, There are no obvious motor or sensory deficits. Coordination appears grossly intact. Speech is normal. Skin: Skin is warm and dry and no rashes or lesions are noted. Psychiatric: Cooperative, appropriate mood & affect, normal judgment. Limitations: no limitations Course Vital Signs 07/02/20 10:47 Temperature 97.8 F Pulse Rate 88 Respiratory 18 Rate Blood Pressure 114/69 O2 Sat by Pulse 99 Oximetry Medical Decision Making - Medical Decision Making History physical examination findings concerning for a spasmodic torticollis/musculoskeletal source of the right-sided neck pain. At this time feel patient is stable for discharge with outpatient follow-up. Patient is to apply heat, take a muscle relaxer, and perform specific stretches. Patient is to follow up with primary care provider return for any worsening symptoms patient is agreeable to this care plan discharge at this time. My attending provider is agreeable to the care plan Disposition Clinical Impression: Torticollis, Neck pain on right side Disposition: HOME SELF-CARE Condition: Good Instructions (If sedation given, give patient instructions): Spasmodic Torticollis (ED) Additional Instructions: Please use medication as discussed. Please follow-up with family doctor in the next 2 days. Please return to emergency room if the symptoms increase or worsen or for any other concerns. Prescriptions: Cyclobenzaprine [Flexeril] 10 mg PO TID PRN 7 Days #21 tab PRN Reason: Muscle Spasm Is patient prescribed a controlled substance at d/c from ED?: No Referrals: None,Stated [Primary Care Provider] - [facility] Time of Disposition: 11:10
== END 2020-07-02 11:18 | disposition home or self-care (01) ==
LOC: EC 10:43
DX: J03.90 Acute tonsillitis, unspecified (principal); F12.90 Cannabis use, unspecified, uncomplicated; Z90.09 Acquired absence of other part of head and neck
CPT/HCPCS: 99283

== ENCOUNTER 2020-09-21 22:16 | Emergency (ER) | payer OTHER ==
[2020-09-21 22:22] VITALS: BP 107/67; PULSE 120; RESP 16; TEMP 98
[2020-09-21] MEDS ORDERED: IBUPROFEN 600 MG STARTER PACK 4 TAB BTL PO STA (22:30)
--- NOTE | 2020-09-21 22:58 | ED ---
Lower Extremity Injury HPI - General Chief Complaint: Extremity Injury, Lower Stated Complaint: R foot injury Time Seen by Provider: 09/21/20 22:23 Source: patient Mode of arrival: wheelchair Limitations: no limitations - History of Present Illness Initial Comments: 29 year-old male patient presents to the emergency department for evaluation of left foot pain. States that he opened the freezer to get some ice and a glass bottle fell out and hit his foot. States it happened earlier in the day and the swelling and pain worsened throughout the evening. Denies any numbness or tingling to the foot. States he did take an extra strength tylenol for pain. Denies any other injuries or concerns. - Related Data Home Medications Medication Instructions Recorded Confirmed Dm/Acetaminophen/Doxylamine [Vicks 30 ml PO Q6H PRN 05/28/18 05/28/18 Nyquil Cold-Flu Liquid] Phenylephrine/Dm/Acetaminop/GG 30 ml PO Q6H PRN 05/28/18 05/28/18 [Vicks Dayquil Severe Cold-Flu] Previous Rx's Medication Instructions Recorded Albuterol Inhaler (Mhu) [Ventolin 1 - 2 puff INHALATION Q6HR PRN #1 05/28/18 Hfa Inhaler (Mhu)] inhaler predniSONE 50 mg PO DAILY #5 tablet 05/28/18 Cyclobenzaprine [Flexeril] 10 mg PO TID PRN 7 Days #21 tab 07/02/20 Ibuprofen [Motrin] 600 mg PO Q8HR PRN #30 tab 09/21/20 Allergies Allergy/AdvReac Type Severity Reaction Status Date / Time No Known Allergies Allergy Verified 09/21/20 22:20 Review of Systems ROS Statement: Those systems with pertinent positive or pertinent negative responses have been documented in the HPI. ROS Other: All systems not noted in ROS Statement are negative. Past Medical History Past Medical History: No Reported History History of Any Multi-Drug Resistant Organisms: None Reported Past Surgical History: Ear Surgery, Tonsillectomy Past Psychological History: No Psychological Hx Reported Smoking Status: Current every day smoker Past Alcohol Use History: Occasional Past Drug Use History: Marijuana General Exam Limitations: no limitations General appearance: alert, in no apparent distress, other (Physical well- developed, well-nourished adult male patient in no acute distress. Vital signs upon presentation are temperature 98.2F, pulse 120, respiration 16, blood pressure 107/67, pulse ox 99% on room air.) Eye exam: Present: normal appearance, PERRL, EOMI. Absent: scleral icterus, conjunctival injection, periorbital swelling ENT exam: Present: normal exam, normal oropharynx, mucous membranes moist Respiratory exam: Present: normal lung sounds bilaterally. Absent: respiratory distress, wheezes, rales, rhonchi, stridor Cardiovascular Exam: Present: regular rate, normal rhythm, normal heart sounds. Absent: systolic murmur, diastolic murmur, rubs, gallop, clicks Extremities exam: Present: full ROM, normal capillary refill, other (Soft tissue swelling noted over the left first MTP joint. Tenderness over the same area. skin is otherwise pink, warm, dry. Cap refill less than 3 seconds. Pedal and posttibial pulses 2+.). Absent: normal inspection, tenderness, pedal edema, joint swelling, calf tenderness Neurological exam: Present: alert, oriented X3, CN II-XII intact Psychiatric exam: Present: normal affect, normal mood Skin exam: Present: warm, dry, intact, normal color. Absent: rash Course Vital Signs 09/21/20 22:20 Temperature 98 F Pulse Rate 120 H Respiratory 16 Rate Blood Pressure 107/67 O2 Sat by Pulse 99 Oximetry Medical Decision Making - Medical Decision Making 29-year-old male patient percents for evaluation of right foot injury. Physical examination did reveal soft tissue swelling around the right first MTP joint. There is tenderness over the area as well. Neurovascular status was intact. X- rays were obtained and showed no evidence of fracture. Placed in an Nigel wrap. He will be discharged follow up with his primary care physician for recheck in the Symptoms aren't improved. Return parameters were discussed in detail. He verbalizes understanding and agrees with this plan. My attending is Dr. Gipson. - Radiology Data Radiology results: report reviewed, image reviewed 3 views of the right foot are obtained. Report was reviewed in its entirety. Impression by Dr. Sy shows negative right foot exam. No fracture. Disposition Clinical Impression: Contusion of right foot Disposition: HOME SELF-CARE Condition: Good Instructions (If sedation given, give patient instructions): Foot Contusion (ED) Additional Instructions: Use Nigel wrap for compression and support. Apply ice several times daily for at least 20 minutes at a time. Take Tylenol and Motrin for pain control. Follow- up with the primary care physician for recheck in 1 week if symptoms are not improved, discuss repeat x-ray. Return for any new, worsening, or concerning symptoms. Prescriptions: Ibuprofen [Motrin] 600 mg PO Q8HR PRN #30 tab PRN Reason: Pain Is patient prescribed a controlled substance at d/c from ED?: No Referrals: None,Stated [Primary Care Provider] - 1-2 days Time of Disposition: 23:09
--- NOTE | 2020-09-21 23:03 | XR ---
EXAMINATION TYPE: XR foot complete RT DATE OF EXAM: 09/21/2020 COMPARISON: NONE HISTORY: Foot pain TECHNIQUE: 3 views FINDINGS: Metatarsals are intact. I see no fracture nor dislocation. Joint spaces are normal. There a re no erosions. IMPRESSION: Negative right foot exam. No fracture.
== END 2020-09-21 23:10 | disposition home or self-care (01) ==
LOC: EC 22:16
DX: S90.31XA Contusion of right foot, initial encounter (principal); F17.200 Nicotine dependence, unspecified, uncomplicated; F12.90 Cannabis use, unspecified, uncomplicated; Z79.1 Long term (current) use of non-steroidal anti-inflammatories (NSAID); Z79.52 Long term (current) use of systemic steroids; W20.8XXA Other cause of strike by thrown, projected or falling object, initial encounter
CPT/HCPCS: 99283

== ENCOUNTER 2020-11-11 12:03 | Emergency (ER) | payer OTHER ==
[2020-11-11 12:18] VITALS: BP 111/64; PULSE 99; RESP 18; TEMP 98.3
--- NOTE | 2020-11-11 13:07 | XR ---
EXAMINATION TYPE: XR chest 2V DATE OF EXAM: 11/11/2020 COMPARISON: Chest x-ray 05/28/2018 HISTORY: Cough, congestion and shortness of breath TECHNIQUE: Frontal and lateral views of the chest are obtained. FINDINGS: There is no focal air space opacity, pleural effusion, or pneumothorax seen. The cardiac silhouette size is within normal limits. The osseous structures are intact. IMPRESSION: No acute cardiopulmonary process.
--- NOTE | 2020-11-11 13:20 | ED ---
URI HPI - General Chief Complaint: Upper Respiratory Infection Stated Complaint: Sore Throat/Headache Time Seen by Provider: 11/11/20 12:31 Source: patient, RN notes reviewed Mode of arrival: ambulatory Limitations: no limitations - History of Present Illness Initial Comments: 30-year-old male presents to emergency department with sore throat cough maximus estion. Patient states that symptoms just started recently. No significant shortness of breath. Patient is a daily smoker. Patient denies any known fever states he's felt hot and cold, sweats at nighttime. Patient denies any significant past medical history no other complaints. - Related Data Home Medications Medication Instructions Recorded Confirmed Dm/Acetaminophen/Doxylamine [Vicks 30 ml PO Q6H PRN 05/28/18 05/28/18 Nyquil Cold-Flu Liquid] Phenylephrine/Dm/Acetaminop/GG 30 ml PO Q6H PRN 05/28/18 05/28/18 [Vicks Dayquil Severe Cold-Flu] Previous Rx's Medication Instructions Recorded Albuterol Inhaler (Mhu) [Ventolin 1 - 2 puff INHALATION Q6HR PRN #1 05/28/18 Hfa Inhaler (Mhu)] inhaler predniSONE 50 mg PO DAILY #5 tablet 05/28/18 Cyclobenzaprine [Flexeril] 10 mg PO TID PRN 7 Days #21 tab 07/02/20 Ibuprofen [Motrin] 600 mg PO Q8HR PRN #30 tab 09/21/20 Azithromycin [Zithromax Z-pack (6 0 mg PO DIRECTED #1 pack 11/11/20 tabs)] Allergies Allergy/AdvReac Type Severity Reaction Status Date / Time No Known Allergies Allergy Verified 11/11/20 12:15 Review of Systems ROS Statement: Those systems with pertinent positive or pertinent negative responses have been documented in the HPI. ROS Other: All systems not noted in ROS Statement are negative. Past Medical History Past Medical History: No Reported History History of Any Multi-Drug Resistant Organisms: None Reported Past Surgical History: Ear Surgery, Tonsillectomy Past Psychological History: No Psychological Hx Reported Smoking Status: Current every day smoker Past Alcohol Use History: Occasional Past Drug Use History: Marijuana General Exam Limitations: no limitations General appearance: alert, in no apparent distress Head exam: Present: atraumatic, normocephalic, normal inspection Eye exam: Present: normal appearance, PERRL, EOMI. Absent: scleral icterus, conjunctival injection, periorbital swelling ENT exam: Present: mucous membranes moist, TM's normal bilaterally. Absent: normal oropharynx (Mild erythema) Neck exam: Present: normal inspection. Absent: tenderness, meningismus, lymphadenopathy Respiratory exam: Present: normal lung sounds bilaterally. Absent: respiratory distress, wheezes, rales, rhonchi, stridor Cardiovascular Exam: Present: regular rate, normal rhythm, normal heart sounds. Absent: systolic murmur, diastolic murmur, rubs, gallop, clicks Course Vital Signs 11/11/20 12:15 Temperature 98.3 F Pulse Rate 99 Respiratory 18 Rate Blood Pressure 111/64 O2 Sat by Pulse 96 Oximetry Medical Decision Making - Medical Decision Making Patient's x-ray, COVID-19 test is negative. Patient discharged stable condition. - Lab Data Lab Results 11/11/20 Range/Units 12:43 Coronavirus (PCR) Not Detected (Not Detectd) Disposition Clinical Impression: Pharyngitis, Acute upper respiratory infection Disposition: HOME SELF-CARE Condition: Stable Instructions (If sedation given, give patient instructions): Upper Respiratory Infection (ED) Additional Instructions: Please return to the Emergency Department if symptoms worsen or any other concer ns. Prescriptions: Azithromycin [Zithromax Z-pack (6 tabs)] 0 mg PO DIRECTED #1 pack Is patient prescribed a controlled substance at d/c from ED?: No Referrals: None,Stated [Primary Care Provider] - 1-2 days Time of Disposition: 13:20
== END 2020-11-11 13:48 | disposition home or self-care (01) ==
LOC: EC 12:03
DX: J02.9 Acute pharyngitis, unspecified (principal); F17.200 Nicotine dependence, unspecified, uncomplicated; F12.90 Cannabis use, unspecified, uncomplicated; Z20.822 Contact with and (suspected) exposure to COVID-19
CPT/HCPCS: 71046; 87635; 99283